=== PATIENT | male | born 1970 | race Caucasian/White ===

== ENCOUNTER 2019-11-12 00:34 | Emergency (ER) | payer MEDICAID ==
[~2019-11-12] VITALS: Ht 182.9 cm; Wt 72.6 kg
--- NOTE | 2019-11-12 00:46 | NUR ---
PATIENT CAME TO ER BED 12 C/O MIDSTERNAL TIGHTNESS SINCE 3x HOURS AGO PRIOR TO ARRIVAL. PATIENT STATES THAT HE HAD A COUPLE OF BEERS ABOUT 6 HOURS AGO WITH MARIJUANA ABOUT 5x HOURS AGO. PATIENT STATES THAT HE HAS DRY MOUTH AND IS FEELING ANXIOUS. PATIENT IS AAOX4. NO SOB. BREATHING EVENLY AND UNLABORED ON ROOM AIR. CONNECTED TO MONITOR
--- NOTE | 2019-11-12 00:52 | NUR ---
PATIENT REFUSED BLOOD WORK. NOTIFIED.
--- NOTE | 2019-11-12 00:52 | NUR ---
PT REFUSED BLOOD DRAW. AWARE.
--- NOTE | 2019-11-12 01:24 | NUR ---
PT ASLEEP. PROVIDED WITH BLANKET.
[2019-11-12] MEDS ORDERED: LORAZEPAM 1 MG TABLET ONE (01:29)
[2019-11-12] MEDS: LORAZEPAM 1 MG TABLET PO ONE (01:31)
--- NOTE | 2019-11-12 02:43 | NUR ---
PT ASLEEP. VSS.
--- NOTE | 2019-11-12 04:34 | NUR ---
PT AWAKE, PROVIDED WITH WATER.
--- NOTE | 2019-11-12 06:02 | NUR ---
Patient discharged to home in stable condition. Written and verbal after care instructions given. Patient verbalizes understanding of instruction.
[2019-11-12 06:03] VITALS: BP 122/76
== END 2019-11-12 06:07 | disposition home or self-care (01) ==
LOC: ER 00:37
DX: F41.9 Anxiety disorder, unspecified (principal); R07.89 Other chest pain; F32.9 Major depressive disorder, single episode, unspecified; F17.200 Nicotine dependence, unspecified, uncomplicated; Z59.0 Homelessness
CPT/HCPCS: 71045-TC